=== PATIENT | male | born 1990 | race African-American/Black ===

== ENCOUNTER 2023-10-03 14:44 | Emergency (ER) | payer BC ==
[~2023-10-03] VITALS: Ht 172.7 cm; Wt 84.4 kg
[2023-10-03 15:02] VITALS: BP 156/105; PULSE 87; RESP 18; TEMP 98; O2SAT 99
[2023-10-03] MEDS: LIDOCAINE 5% 1 EA PATCH TP ONE (15:51)
[2023-10-03] MEDS: CYCLOBENZAPRINE 10 MG TAB PO ONE (15:51)
[2023-10-03] MEDS: KETOROLAC 30 MG/ML VIAL IM ONE (15:56)
[2023-10-03] MEDS ORDERED: LID5T TP (16:03)
[2023-10-03] MEDS ORDERED: NAPR-337 PO (16:03)
[2023-10-03] MEDS ORDERED: CYCL-711 PO (16:03)
[2023-10-03] MEDS: IBUPROFEN 600 MG TAB PO ONE (16:15)
[2023-10-03 16:42] VITALS: BP 154/99; PULSE 88; RESP 16; TEMP 98; O2SAT 99
== END 2023-10-03 16:32 | disposition home or self-care (01) ==
LOC: MED 14:44
DX: S39.012A Strain of muscle, fascia and tendon of lower back, initial encounter (principal); S46.911A Strain of unspecified muscle, fascia and tendon at shoulder and upper arm level, right arm, initial encounter; I10 Essential (primary) hypertension; Z79.1 Long term (current) use of non-steroidal anti-inflammatories (NSAID); Z79.899 Other long term (current) drug therapy; V79.69XA Unspecified bus occupant injured in collision with other motor vehicles in traffic accident, initial encounter; Y93.89 Activity, other specified; Y92.89 Other specified places as the place of occurrence of the external cause; Y99.8 Other external cause status
CPT/HCPCS: 72110; 73030; 99284; J1885